=== PATIENT | female | born 1975 | race Two or more races ===

== ENCOUNTER 2021-04-10 09:35 | Inpatient (IN) | payer OTHER ==
[~2021-04-10] VITALS: Ht 160 cm; Wt 59.9 kg
[2021-04-10] MEDS ORDERED: HALOPERIDOL 5 MG TABLET PO PRN (11:00)
[2021-04-10] MEDS ORDERED: PNEUMOCOCCAL VACCINE POLYVALENT 0.5 ML VIAL [PPSV23] IM. ONE (13:30)
[2021-04-10] MEDS ORDERED: CloNIDine HCL 0.1 MG TABLET PO PRN (15:30)
[2021-04-10 16:14] VITALS: BP 133/83
[2021-04-11 00:44] VITALS: BP 128/78
[2021-04-11] MEDS ORDERED: ONDANSETRON HCL 4 MG TABLET PO PRN (07:30)
[2021-04-11] MEDS ORDERED: MAGNESIUM HYDROXIDE SUSPENSION 30 ML UDCUP PO PRN (07:30)
[2021-04-11] MEDS ORDERED: PETROLATUM,WHITE 28 GM JELLY TP PRN (07:30)
[2021-04-11] MEDS ORDERED: LOPERAMIDE HCL 2 MG CAPSULE PO PRN (07:30)
[2021-04-11] MEDS ORDERED: CloNIDine HCL 0.1 MG TABLET PO PRN (07:30)
[2021-04-11] MEDS ORDERED: GuaiFENesin/D-METHORPHAN [SUGAR-FREE] 200-20MG/10 ML SYRUP UDCUP PO PRN (07:30)
[2021-04-11] MEDS ORDERED: DOCUSATE SODIUM 100 MG CAPSULE PO PRN (07:30)
[2021-04-11] MEDS ORDERED: NICOTINE 14 MG/24 HOUR PATCH TD PRN (07:30)
[2021-04-11] MEDS ORDERED: MAG HYDROX/AL HYDROX/SIMETH ES 30 ML SUSPENSION UDCUP PO PRN (07:30)
[2021-04-11] MEDS ORDERED: ALBUTEROL SULFATE HFA 90 MCG/PUFF 8 GM INHALER IH PRN (07:30)
[2021-04-11 07:40] LABS: BASOPHILS % (AUTO) 0.8 % (0.0-2.0); EOSINOPHILS % (AUTO) 0.9 % (1.0-6.0); HEMATOCRIT 42.2 % (36-46); HEMOGLOBIN 14.1 g/dL (12.0-16.0); LYMPHOCYTES # (AUTO) 1.5 K/uL (1.0-4.8); LYMPHOCYTES % (AUTO) 25.1 % (22.0-44.0); MEAN CORPUSCULAR HEMOGLOBIN 29.2 pg (26.0-34.0); MEAN CORPUSCULAR HGB CONC 33.3 G/dL (31.0-37.0); MEAN CORPUSCULAR VOLUME 88 fL (80-100); MONOCYTES # (AUTO) 0.5 K/uL (0.1-1.0); MONOCYTES % (AUTO) 8.4 % (2.0-9.0); NEUTROPHILS # (AUTO) 3.9 K/uL (1.8-7.7); NEUTROPHILS % (AUTO) 64.8 % (40.0-70.0); PLATELET COUNT (AUTO) 388 K/uL (150-450); RED BLOOD CELL COUNT(AUTO) 4.82 MIL/uL (4.00-5.20); RED CELL DISTRIBUTION WIDTH 13.8 % (11.5-14.5)
[2021-04-11 07:46] LABS: HEMOGLOBIN A1C 5.1 % (3.8-5.6)
[2021-04-11 08:01] VITALS: BP 160/111
[2021-04-11 08:07] LABS: ALANINE AMINOTRANSFERASE 27 U/L (12-78); ALBUMIN 4.6 g/dL (3.4-5.0); ALKALINE PHOSPHATASE 75 U/L (46-116); ANION GAP 12 mmol/L (8-16); ASPARTATE AMINOTRANSFERASE 21 U/L (15-37); BILIRUBIN,TOTAL 0.5 mg/dL (0.1-1.0); CALCIUM, TOTAL 9.6 mg/dL (8.8-10.5); CARBON DIOXIDE 25 mmol/L (22-29); CHLORIDE 101 mmol/L (98-107); CHOL/HDL RATIO 3.3 (3.9-5.7); CHOLESTEROL 223 mg/dL (131-200); CREATININE 0.69 mg/dL (0.60-1.30); FREE T4 (FREE THYROXINE) 1.46 ng/dL (0.76-1.46); GLOMERULAR FILTR. RATE CALC > 60 mL/min (>60); GLUCOSE,RANDOM 105 mg/dL (70-110); HCG,QUANTITATIVE < 1 mIU/mL (0-6); HDL CHOLESTEROL 68 mg/dL (40-60); LDL CHOL (CALC.) 146 mg/dL (0-130); POTASSIUM 3.2 mmol/L (3.5-5.1); SODIUM SERUM 138 mmol/L (136-145); THYROID STIMULATING HORMONE 0.52 uIU/mL (0.36-3.74); TRIGLYCERIDES 44 mg/dL (15-150); UREA NITROGEN, BLOOD 12 mg/dL (7-18)
[2021-04-11] MEDS: AmLODIPine BESYLATE 5 MG TABLET PO SCH ×2 (09:00→12:48)
[2021-04-11] MEDS: RisperiDONE 1 MG TABLET PO SCH ×2 (11:02→20:10)
[2021-04-11] MEDS: LORazepam 2 MG TABLET PO PRN (12:48)
[2021-04-11 12:50] VITALS: BP 139/71
[2021-04-11] MEDS ORDERED: POTASSIUM CHLORIDE 20 MEQ ER TABLET PO ONE (16:45)
[2021-04-11 17:14] VITALS: BP 121/68
[2021-04-12 00:33] VITALS: BP 106/71
[2021-04-12] MEDS: RisperiDONE 1 MG TABLET PO SCH ×2 (08:15→21:00)
[2021-04-12] MEDS: AmLODIPine BESYLATE 5 MG TABLET PO SCH (08:15)
[2021-04-12 08:18] VITALS: BP 110/86
[2021-04-12 16:16] VITALS: BP 121/69
[2021-04-13 01:35] VITALS: BP 141/66
[2021-04-13 08:12] VITALS: BP 127/84
[2021-04-13] MEDS: RisperiDONE 1 MG TABLET PO SCH ×2 (08:30→21:00)
[2021-04-13] MEDS: AmLODIPine BESYLATE 5 MG TABLET PO SCH (08:30)
[2021-04-13 16:20] VITALS: BP 154/73
[2021-04-14 04:39] VITALS: BP 153/93
[2021-04-14 08:06] VITALS: BP 148/74
[2021-04-14] MEDS: RisperiDONE 1 MG TABLET PO SCH ×2 (08:23→20:17)
[2021-04-14] MEDS: AmLODIPine BESYLATE 5 MG TABLET PO SCH (08:23)
[2021-04-14 16:08] VITALS: BP 136/91
[2021-04-15 00:51] VITALS: BP 130/88
[2021-04-15 08:52] VITALS: BP 120/80
[2021-04-15] MEDS: AmLODIPine BESYLATE 5 MG TABLET PO SCH (09:00)
[2021-04-15] MEDS: RisperiDONE 1 MG TABLET PO SCH ×2 (09:00→20:14)
[2021-04-15 16:28] VITALS: BP 131/94
[2021-04-16 06:23] VITALS: BP 112/64
[2021-04-16] MEDS: LORazepam 2 MG TABLET PO PRN (06:59)
[2021-04-16 08:23] VITALS: BP 129/89
[2021-04-16] MEDS: AmLODIPine BESYLATE 5 MG TABLET PO SCH (09:00)
[2021-04-16] MEDS: RisperiDONE 1 MG TABLET PO SCH ×2 (09:00→21:00)
[2021-04-16 16:04] VITALS: BP 132/92
[2021-04-17 06:58] VITALS: BP 108/76
[2021-04-17] MEDS: AmLODIPine BESYLATE 5 MG TABLET PO SCH (08:18)
[2021-04-17] MEDS: RisperiDONE 1 MG TABLET PO SCH ×2 (08:18→20:30)
[2021-04-17 08:24] VITALS: BP 132/84
[2021-04-17 16:11] VITALS: BP 143/78
[2021-04-17] MEDS ORDERED: HALOPERIDOL LACTATE 5 MG/ML VIAL ONE (21:22)
[2021-04-17] MEDS ORDERED: LORazepam 2 MG/ML VIAL ONE (21:22)
[2021-04-17] MEDS ORDERED: DiphenhydrAMINE HCL 50 MG/ML VIAL ONE (21:22)
[2021-04-17] MEDS ORDERED: LORazepam 2 MG/ML VIAL IM ONE (21:30)
[2021-04-17] MEDS ORDERED: HALOPERIDOL LACTATE 5 MG/ML VIAL IM ONE (21:30)
[2021-04-17] MEDS ORDERED: DiphenhydrAMINE HCL 50 MG/ML VIAL IM ONE (21:30)
[2021-04-18 00:59] VITALS: BP 126/74
[2021-04-18 08:16] VITALS: BP 129/84
[2021-04-18] MEDS: AmLODIPine BESYLATE 5 MG TABLET PO SCH (08:55)
[2021-04-18] MEDS: RisperiDONE 1 MG TABLET PO SCH ×2 (08:55→20:23)
[2021-04-18 16:19] VITALS: BP 119/72
[2021-04-18] MEDS ORDERED: DiphenhydrAMINE HCL 50 MG/ML VIAL ONE (17:06)
[2021-04-18] MEDS ORDERED: LORazepam 2 MG/ML VIAL ONE (17:06)
[2021-04-18] MEDS ORDERED: HALOPERIDOL LACTATE 5 MG/ML VIAL ONE (17:06)
[2021-04-18] MEDS ORDERED: DiphenhydrAMINE HCL 50 MG/ML VIAL IM ONE (17:15)
[2021-04-18] MEDS ORDERED: LORazepam 2 MG/ML VIAL IM ONE (17:15)
[2021-04-18] MEDS ORDERED: HALOPERIDOL LACTATE 5 MG/ML VIAL IM ONE (17:15)
[2021-04-19 07:04] VITALS: BP 112/75
[2021-04-19 08:24] VITALS: BP 121/79
[2021-04-19] MEDS: AmLODIPine BESYLATE 5 MG TABLET PO SCH (08:28)
[2021-04-19] MEDS: RisperiDONE 1 MG TABLET PO SCH ×2 (08:28→20:35)
[2021-04-19 16:06] VITALS: BP 120/86
[2021-04-20 06:26] VITALS: BP 149/85
[2021-04-20 08:13] VITALS: BP 143/95
[2021-04-20] MEDS: AmLODIPine BESYLATE 5 MG TABLET PO SCH (08:15)
[2021-04-20] MEDS: RisperiDONE 1 MG TABLET PO SCH ×2 (08:15→20:35)
[2021-04-20 16:09] VITALS: BP 144/87
[2021-04-20 17:00] VITALS: BP 136/70
[2021-04-21 00:56] VITALS: BP 126/64
[2021-04-21 07:45] LABS: APPEARANCE,URINE CLEAR (CLEAR); BILIRUBIN,URINE NEGATIVE (NEGATIVE); GLUCOSE, URINE (UA) NEGATIVE (NEGATIVE); KETONES,URINE NEGATIVE (NEGATIVE); LEUKOCYTE ESTERASE ,URINE NEGATIVE (NEGATIVE); NITRATE,URINE NEGATIVE (NEGATIVE); OCCULT BLOOD,URINE NEGATIVE (NEGATIVE); PROTEIN,URINE NEGATIVE (NEGATIVE); UROBILINOGEN,URINE 0.2 mg/dL (<=1.0)
[2021-04-21 07:54] LABS: AMPHET/METH SCREEN,URINE NEGATIVE (NEGATIVE); BARBITURATE SCREEN, URINE NEGATIVE (NEGATIVE); BENZODIAZEPINES SCREEN,URINE NEGATIVE (NEGATIVE); CANNABINOID SCREEN,URINE NEGATIVE (NEGATIVE); COCAINE SCREEN,URINE NEGATIVE (NEGATIVE); METHADONE SCREEN, URINE NEGATIVE (NEGATIVE); OPIATE SCREEN,URINE NEGATIVE (NEGATIVE)
[2021-04-21 08:08] LABS: PHENCYCLIDINE SCREEN,URINE NEGATIVE (NEGATIVE)
[2021-04-21 08:11] VITALS: BP 128/79
[2021-04-21] MEDS: RisperiDONE 1 MG TABLET PO SCH (08:17)
[2021-04-21] MEDS: AmLODIPine BESYLATE 5 MG TABLET PO SCH (08:17)
[2021-04-21 17:11] VITALS: BP 140/90
[2021-04-21] MEDS: ZOLPIDEM TARTRATE 10 MG TABLET PO PRN (20:47)
[2021-04-21] MEDS: RisperiDONE 2 MG TABLET PO SCH (20:47)
[2021-04-21] MEDS: LORazepam 2 MG TABLET PO PRN (20:47)
[2021-04-22 04:08] VITALS: BP 138/83
[2021-04-22 08:16] VITALS: BP 126/81
[2021-04-22] MEDS: AmLODIPine BESYLATE 5 MG TABLET PO SCH (09:00)
[2021-04-22] MEDS: RisperiDONE 2 MG TABLET PO SCH ×2 (09:01→21:00)
[2021-04-22] MEDS: IBUPROFEN 400 MG TABLET PO PRN (09:10)
[2021-04-22] MEDS: ACETAMINOPHEN 325 MG TABLET PO PRN (11:09)
[2021-04-22 16:10] VITALS: BP 121/74
[2021-04-22] MEDS: HALOPERIDOL LACTATE 5 MG/ML VIAL IM PRN (20:56)
[2021-04-23 05:42] VITALS: BP 124/76
[2021-04-23 08:17] VITALS: BP 120/82
[2021-04-23] MEDS: RisperiDONE 2 MG TABLET PO SCH ×2 (09:00→20:56)
[2021-04-23] MEDS: AmLODIPine BESYLATE 5 MG TABLET PO SCH (09:50)
[2021-04-23] MEDS: HALOPERIDOL LACTATE 5 MG/ML VIAL IM PRN ×2 (09:55→20:56)
[2021-04-23 16:28] VITALS: BP 131/74
[2021-04-23] MEDS: IBUPROFEN 400 MG TABLET PO PRN (21:02)
[2021-04-24 05:36] VITALS: BP 112/72
[2021-04-24 08:24] VITALS: BP 122/74
[2021-04-24] MEDS: AmLODIPine BESYLATE 5 MG TABLET PO SCH (08:32)
[2021-04-24] MEDS: RisperiDONE 2 MG TABLET PO SCH ×2 (08:37→20:21)
[2021-04-24] MEDS: HALOPERIDOL LACTATE 5 MG/ML VIAL IM PRN ×2 (08:41→21:08)
[2021-04-24 16:17] VITALS: BP 123/71
[2021-04-25 06:28] VITALS: BP 107/67
[2021-04-25 08:16] VITALS: BP 110/66
[2021-04-25] MEDS: AmLODIPine BESYLATE 5 MG TABLET PO SCH (08:54)
[2021-04-25] MEDS: RisperiDONE 2 MG TABLET PO SCH ×2 (08:54→20:23)
[2021-04-25] MEDS: HALOPERIDOL LACTATE 5 MG/ML VIAL IM PRN ×2 (09:04→20:29)
[2021-04-25 16:18] VITALS: BP 123/70
[2021-04-26 04:05] VITALS: BP 116/68
[2021-04-26 08:13] VITALS: BP 128/75
[2021-04-26] MEDS: AmLODIPine BESYLATE 5 MG TABLET PO SCH (09:22)
[2021-04-26] MEDS: IBUPROFEN 400 MG TABLET PO PRN (09:28)
[2021-04-26 16:07] VITALS: BP 103/66
[2021-04-26] MEDS ORDERED: QUEtiapine FUMARATE 100 MG TABLET PO SCH (17:00)
[2021-04-26] MEDS: QUEtiapine FUMARATE 100 MG TABLET PO SCH (20:02)
[2021-04-26] MEDS: ZOLPIDEM TARTRATE 10 MG TABLET PO PRN (20:38)
[2021-04-27] MEDS: AmLODIPine BESYLATE 5 MG TABLET PO SCH (08:39)
[2021-04-27] MEDS: QUEtiapine FUMARATE 100 MG TABLET PO SCH ×2 (08:39→20:09)
[2021-04-27 08:47] VITALS: BP 112/62
[2021-04-27 16:10] VITALS: BP 142/80
[2021-04-27] MEDS: ZOLPIDEM TARTRATE 10 MG TABLET PO PRN (20:17)
[2021-04-27] MEDS: LORazepam 2 MG TABLET PO PRN (21:00)
[2021-04-27] MEDS: IBUPROFEN 400 MG TABLET PO PRN (21:00)
[2021-04-27 21:04] VITALS: BP 147/95
[2021-04-28 05:34] VITALS: BP 118/68
[2021-04-28 08:16] VITALS: BP 120/79
[2021-04-28] MEDS: QUEtiapine FUMARATE 100 MG TABLET PO SCH ×2 (09:12→20:03)
[2021-04-28] MEDS: AmLODIPine BESYLATE 5 MG TABLET PO SCH (09:12)
[2021-04-28 16:30] VITALS: BP 126/78
[2021-04-28] MEDS: ZOLPIDEM TARTRATE 10 MG TABLET PO PRN (20:03)
[2021-04-29 04:50] VITALS: BP 117/73
[2021-04-29] MEDS: AmLODIPine BESYLATE 5 MG TABLET PO SCH (08:14)
[2021-04-29] MEDS: QUEtiapine FUMARATE 100 MG TABLET PO SCH ×2 (08:14→20:05)
[2021-04-29 08:30] VITALS: BP 143/93
[2021-04-29] MEDS: IBUPROFEN 400 MG TABLET PO PRN (15:21)
[2021-04-29 16:11] VITALS: BP 139/62
[2021-04-29 16:15] VITALS: BP 139/62
[2021-04-29] MEDS: ACETAMINOPHEN 325 MG TABLET PO PRN (16:23)
[2021-04-29] MEDS: LORazepam 2 MG TABLET PO PRN (22:38)
[2021-04-30 04:26] VITALS: BP 132/66
[2021-04-30] MEDS ORDERED: QUET100T PO (07:48)
[2021-04-30] MEDS ORDERED: AMLO-257 PO (07:49)
[2021-04-30 08:04] VITALS: BP 130/69
[2021-04-30] MEDS: QUEtiapine FUMARATE 100 MG TABLET PO SCH (08:17)
[2021-04-30] MEDS: AmLODIPine BESYLATE 5 MG TABLET PO SCH (08:17)
== END 2021-04-30 11:30 | disposition home or self-care (01) | DRG 885 ==
LOC: B3A 11:14
PROVIDERS: ADMIT Psychiatry & Neurology Child & Adolescent Psychiatry; ATTEND Psychiatry & Neurology Child & Adolescent Psychiatry
DX: F29 Unspecified psychosis not due to a substance or known physiological condition (principal); F17.200 Nicotine dependence, unspecified, uncomplicated; E87.6 Hypokalemia; G43.909 Migraine, unspecified, not intractable, without status migrainosus; I10 Essential (primary) hypertension; F12.99 Cannabis use, unspecified with unspecified cannabis-induced disorder; J45.909 Unspecified asthma, uncomplicated; E05.00 Thyrotoxicosis with diffuse goiter without thyrotoxic crisis or storm; Z91.14 Patient's other noncompliance with medication regimen; Z28.21 Immunization not carried out because of patient refusal; Z88.5 Allergy status to narcotic agent; Z59.0 Homelessness; Z72.89 Other problems related to lifestyle; Z98.82 Breast implant status; Z71.6 Tobacco abuse counseling
CPT/HCPCS: 80053; 80061; 80307; 81003; 83036; 84132; 84436; 84439; 84443; 84702; 84703; 85025; 87081; G0480; J1200; J1630; J2060